=== PATIENT | male | born 1945 | race Caucasian/White ===

== ENCOUNTER 2017-01-04 19:05 | Emergency (ER) | payer MEDICARE, OTHER ==
[~2017-01-04] VITALS: Ht 177.8 cm; Wt 90.0 kg
[~2017-01-04 19:05] MED LIST: ACET500C5 PO; ATOR20TA38 PO; BACL20TA PO; BESI5DRO RIGHT EYE; BROM3DRO RIGHT EYE; CAPT50TA3 PO; DOCU250C68 PO; GABA-528 PO; LOTE5DRO3 RIGHT EYE; VERA80TA PO; [UNRECOGNIZED DRUG - CODE] PO
[2017-01-04 19:38] VITALS: Ht 177.8 cm; Wt 90.0 kg
--- NOTE | 2017-01-04 21:58 | ERD ---
ER Documentation Chief Complaint Date/Time DATE: 01/04/17 TIME: 21:54 Chief Complaint Bilateral leg cramping. pt had accident 12 year ago HPI Pleasant [place] Citizen-speaking 71-year-old male presents to emergency department today with increased neuropathy, tingling burning nerve pain from below bilateral knees down. Patient has a spinal injury 12 years ago, is wheelchair bound. Patient in room with his who reports that this pain has been increasing over the last few days. Patient is also concerned about his blood pressure, he brings his blood pressure cuff in 173/101 on left arm. This is taken on patient's home machine, reevaluation by nurse practitioner on hospital machine 173/83. Patient reports pain is severe, patient almost in tears. Patient denies nausea, vomiting, dysuria or hematuria. ROS All systems reviewed and are negative except as per history of present illness. Medications Home Meds Active Scripts Hydrocodone/Acetaminophen (Brenton 5-325 Tablet) 1 Each Tablet, 1 TAB PO Q6H Y for PAIN, #20 TAB Prov:ESTEVAN CORREIA 01/04/17 Acetaminophen* (Tylophen*) 500 Mg Capsule, 1 CAP PO Q6H Y for PAIN AND OR ELEVATED TEMP, #20 CAP Prov:JENNY LEMOS MD 08/28/16 Reported Medications Besifloxacin Hydrochloride (Besivance) 5 Ml Drops.susp, 1 DRP RIGHT EYE TID 10/24/14 Bromfenac Sodium (PROLENSA) 1.6 Ml Drops, 1 DRP RIGHT EYE DAILY 10/24/14 Loteprednol Etabonate* (Lotemax*) 5 Ml Drops.susp, 1 DROP RIGHT EYE TID, EA 10/24/14 Verapamil Hcl* (Calan*) 80 Mg Tablet, 80 MG PO TID, TAB 10/21/14 Gabapentin* (Gabapentin*) 800 Mg Tablet, 800 MG PO TID, TAB 10/21/14 Docusate Sodium* (Dok*) 250 Mg Capsule, 250 MG PO BID Y for CONSTIPATION, CAP 10/21/14 Captopril* (Captopril*) 50 Mg Tablet, 50 MG PO BID, TAB 10/21/14 Baclofen* (Baclofen*) 20 Mg Tablet, 20 MG PO TID, TAB 10/21/14 Atorvastatin Calcium* (Atorvastatin Calcium*) 20 Mg Tablet, 20 MG PO DAILY 07/31/13 Metformin Hcl* (Glumetza*) 1,000 Mg [id number], 1000 MG PO BID 07/31/13 Allergies Allergies: Coded Allergies: No Known Allergies (Verified Allergy, Mild, 10/23/14) PMhx/Soc History of Surgery: Yes (back surgery) Anesthesia Reaction: No Hx Neurological Disorder: No Hx Respiratory Disorders: No Hx Cardiac Disorders: Yes (htn, dm, cholesterol) Hx Psychiatric Problems: No Hx Miscellaneous Medical Probl: No Hx Alcohol Use: No Hx Substance Use: No Hx Tobacco Use: No Smoking Status: Never smoker Physical Exam Vitals Vital Signs Date Time Temp Pulse Resp B/P Pulse Ox O2 Delivery O2 Flow Rate FiO2 01/04/17 19:38 97.2 84 18 135/99 95 Blood pressure rechecked by nurse practitioner. 173/83. Physical Exam Const: No acute distress Head: Eyes: ENT: Neck: Resp: Cardio: Abd: Skin: No petechiae or rashes Back: No midline or flank tenderness Ext: Patient in wheelchair, bilateral extremities warm, no muscle wasting, patient has some movement with resistance. Peripheral pulses palpable. Joint spaces soft, normal circulation, decreased sensation. Neur: Awake and alert Psych: Normal Mood and Affect Results 24 hrs Current Medications Medications (Trade) Dose Ordered Sig/Deysi Route PRN Reason Start Time Stop Time Status Last Admin Dose Admin Acetaminophen/ Hydrocodone Bitart (Brenton (10/325)) 1 tab ONCE ONCE PO 01/04/17 22:00 01/04/17 22:01 DC 01/04/17 22:16 Procedures/MDM [place] Citizen-speaking 71-year-old male patient presents to emergency room with chronic leg pain worsening over the last few weeks. Patient's is in room who helps with history. 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 Patient in wheelchair reports neuropathy to lower extremities. Patient' s currently on Neurontin with worsening of numbness and tingling to the lower extremities. Patient is currently not being followed by pain management, responded well to Brenton 5/325mg. I feel patient's case can be managed outpatient and he is stable for discharge at this time. He has received a referral for pain management, and a prescription for Brenton 5/325 mg 20 count. Exam findings, treatment plan discussed with patient and prior to discharge , emergent return to emergency department for reevaluation discussed. Side effects of medication reviewed. Comfort care discussed. Patient instructed to call to schedule an appointment with pain management. Continue all routine medications as prescribed. Patient and verbalized understanding, agree with plan of care. Departure Condition: ESTEVAN Garnica Jan 04, 2017 21:58
[2017-01-04] MEDS ORDERED: HYDROCODONE/APAP (10/325) TAB PO ONE (22:00)
[2017-01-04] MEDS ORDERED: HYDR-906 PO (22:58)
== END 2017-01-04 23:20 | disposition home or self-care (01) ==
LOC: FTE 19:05
DX: M79.605 Pain in left leg (principal); M79.604 Pain in right leg; R20.0 Anesthesia of skin; R20.2 Paresthesia of skin; I10 Essential (primary) hypertension; E11.9 Type 2 diabetes mellitus without complications; Z79.84 Long term (current) use of oral hypoglycemic drugs
CPT/HCPCS: 99283

== ENCOUNTER 2018-04-24 11:54 | Observation (INO) | END 2018-04-25 15:10 | disposition home or self-care (01) ==

== ENCOUNTER 2018-08-20 04:59 | Emergency (ER) | END 2018-08-20 10:33 | disposition home or self-care (01) ==

== ENCOUNTER 2019-03-02 15:07 | Emergency (ER) | payer MEDICARE, OTHER ==
[~2019-03-02] VITALS: Ht 170.2 cm; Wt 70.0 kg
[~2019-03-02 15:07] MED LIST changes: -ACET500C5 PO; +AMLO5TAB4 PO; +ASPI-817 PO; -BESI5DRO RIGHT EYE; -BROM3DRO RIGHT EYE; -CAPT50TA3 PO; +CEPH-443 PO; -DOCU250C68 PO; +FAMO20TA18 PO; +IBUP-1542 PO; +INSU100I33 SC; +LANT3I SC; +LIDO1ADH41 TP; +LISI-471 PO; -LOTE5DRO3 RIGHT EYE; +POLY17PO6 PO; +TERB30CR22 TOP; -VERA80TA PO
[2019-03-02] MEDS ORDERED: morphine 4 MG/ML VIAL IV STA (15:16)
[2019-03-02] MEDS ORDERED: SOD CHLORIDE 0.9% 500 ML IV STA (15:16)
[2019-03-02] MEDS ORDERED: ONDANSETRON 4 MG INJ IV STA (15:16)
[2019-03-02 15:18] VITALS: Ht 170.2 cm; Wt 70.0 kg
[2019-03-02] MEDS ORDERED: LORAZEPAM 2 MG INJ IV ONE (15:30)
--- NOTE | 2019-03-02 15:41 | ERD ---
ER Documentation Chief Complaint Chief Complaint BIB RA FOR EVAL OF LEFT SIDED WEAKNESS SINCE THIS AM. HPI This is a 73-year-old gentleman who presents to the emergency room with headache and numbness and tingling. The patient is a very limited and difficult historian despite the use of an swatch maker. He states that around 11 AM he started to have gradual onset bandlike headache that is throbbing. This is similar to headaches in the past. The patient has been getting headaches more frequently recently over the last 1-2 months. The patient notes associated paresthesia of the left upper extremity. Despite what is noted at triage the patient denies any motor weakness. No slurred speech, no difficulty talking and no difficulty moving his upper extremities. The patient has baseline paraplegia related to spinal fracture. During the patient's encounter translation services were utilized Language: Danish Source: In person ROS All systems reviewed and are negative except as per history of present illness. Medications Home Meds Reported Medications Insulin Glargine* (Lantus*) 100 Unit/Ml Soln, 20 UNIT SC QHS, #1 VIAL 03/02/19 Insulin Aspart* (Novolog Insulin Pen*) 100 Unit/Ml Soln, 15 UNIT SC WITH MEALS, EA 03/02/19 Aspirin* (Aspirin* EC) 81 Mg Tablet.dr, 81 MG PO DAILY, TAB 03/02/19 Ibuprofen* (Ibuprofen*) 600 Mg Tablet, 600 MG PO Q8, TAB 03/02/19 Atorvastatin Calcium* (Atorvastatin Calcium*) 20 Mg Tablet, 20 MG PO QHS, #30 TAB 03/02/19 Lisinopril* (Lisinopril*) 30 Mg Tablet, 30 MG PO DAILY, #30 TAB 03/02/19 Metformin Hcl* (Metformin Hcl*) 1,000 Mg Tablet, 1000 MG PO WITH BREAKFAST DINNE, #60 TAB 03/02/19 Baclofen* (Baclofen*) 20 Mg Tablet, 20 MG PO Q8, TAB 03/02/19 Famotidine* (Famotidine*) 20 Mg Tablet, 20 MG PO BID, #60 TAB 03/02/19 Gabapentin* (Gabapentin*) 800 Mg Tablet, 800 MG PO TID, #90 TAB 03/02/19 Amlodipine Besylate* (Amlodipine Besylate*) 10 Mg Tablet, 10 MG PO DAILY, #30 TAB 03/02/19 Discontinued Reported Medications Lidocaine (Aspercreme) 1 Each Adh..patch, 1 EACH TP 08/20/18 Terbinafine Hcl* (Terbinafine Hcl*) 1% - 30 Gm Cream..g., 1 APPLIC TOP DAILY, TUB 08/20/18 Ibuprofen* (Ibuprofen*) 600 Mg Tablet, 600 MG PO Q6H PRN for PAIN LEVEL 1-5, TAB 08/20/18 Polyethylene Glycol* (Miralax*) 17 Gm Powd.pack, 17 GM PO DAILY, #30 PACKET 08/20/18 Famotidine* (Famotidine*) 20 Mg Tablet, 20 MG PO BID, #60 TAB 08/20/18 Insulin Glargine,Hum.rec.anlog (Basaglar Kwikpen U-100) 100 Unit/1 Ml Insuln.p en, 10-20 UNIT SC AC MEALS, EA 04/24/18 Insulin Glargine* (Lantus*) 100 Unit/Ml Soln, 18 UNIT SC QHS, #1 VIAL 04/24/18 Aspirin* (Aspirin* EC) 81 Mg Tablet.dr, 81 MG PO DAILY, TAB 04/24/18 Amlodipine Besylate* (Norvasc*) 5 Mg Tablet, 5 MG PO DAILY, TAB 04/24/18 Lisinopril* (Lisinopril*) 20 Mg Tablet, 20 MG PO DAILY, #30 TAB 04/24/18 Gabapentin* (Gabapentin*) 800 Mg Tablet, 800 MG PO TID, TAB 10/21/14 Baclofen* (Baclofen*) 20 Mg Tablet, 20 MG PO TID, TAB 10/21/14 Atorvastatin Calcium* (Atorvastatin Calcium*) 20 Mg Tablet, 20 MG PO DAILY 07/31/13 Metformin Hcl* (Glumetza*) 1,000 Mg [id number], 1000 MG PO BID 07/31/13 Discontinued Scripts Cephalexin* (Keflex*) 500 Mg Capsule, 500 MG PO BID for 7 Days, CAP Prov:AMIE KHAN MD 08/20/18 Allergies Allergies: Coded Allergies: No Known Allergies (Verified Allergy, Mild, 03/02/19) PMhx/Soc History of Surgery: No Anesthesia Reaction: No Hx Neurological Disorder: No Hx Respiratory Disorders: No Hx Cardiac Disorders: Yes (htn) Hx Psychiatric Problems: No Hx Miscellaneous Medical Probl: Yes (See EMR for details. STROKE) Hx Alcohol Use: No Hx Substance Use: No Hx Tobacco Use: No FmHx Family History: No diabetes Physical Exam Vitals Vital Signs Date Temp Pulse Resp B/P (MAP) Pulse Ox O2 O2 Flow FiO2 Time Delivery Rate 03/02/19 97.6 80 16 150/90 99 15:18 (110) Physical Exam General: Very anxious, moving upper extremities Head: Normocephalic, atraumatic. Eyes: Pupils equally reactive, EOM intact ENT: Moist mucous membranes Neck: Supple, no lymphadenopathy Respiratory: Lungs clear bilaterally, no distress Cardiovascular: RRR, no murmurs, rubs, or gallops Abdominal: Soft, non-tender, non-distended, no peritoneal signs : Deferred MSK: Patient has 5 out of 5 strength of bilateral upper extremities with no deficits in sensation. The patient has baseline paralysis of bilateral lower extremities Neurologic: Patient is alert and oriented, moving upper extremities at baseline. Normal rapid alternating movements, no pronator drift, normal finger to nose. Skin: No rash Psych: Normal mood Result Diagram: 03/02/19 1526 03/02/19 1526 Results 24 hrs Laboratory Tests Test 03/02/19 15:26 White Blood Count 10.6 10^3/ul Red Blood Count 5.48 10^6/ul Hemoglobin 14.7 g/dl Hematocrit 44.5 % Mean Corpuscular Volume 81.2 fl Mean Corpuscular Hemoglobin 26.8 pg Mean Corpuscular Hemoglobin Concent 33.0 g/dl Red Cell Distribution Width 14.6 % Platelet Count 358 10^3/UL Mean Platelet Volume 9.3 fl Immature Granulocytes % 0.200 % Neutrophils % 58.7 % Lymphocytes % 26.0 % Monocytes % 9.5 % Eosinophils % 4.7 % Basophils % 0.9 % Nucleated Red Blood Cells % 0.0 /100WBC Immature Granulocytes # 0.020 10^3/ul Neutrophils # 6.2 10^3/ul Lymphocytes # 2.8 10^3/ul Monocytes # 1.0 10^3/ul Eosinophils # 0.5 10^3/ul Basophils # 0.1 10^3/ul Nucleated Red Blood Cells # 0.0 10^3/ul Prothrombin Time 12.1 Sec Prothrombin Time Ratio 0.9 INR International Normalized Ratio 0.89 Activated Partial Thromboplast Time 27.7 Sec Sodium Level 139 mmol/L Potassium Level 5.1 mmol/L Chloride Level 101 mmol/L Carbon Dioxide Level 29 mmol/L Anion Gap 9 Blood Urea Nitrogen 21 mg/dl Creatinine 0.94 mg/dl Est Glomerular Filtrat Rate mL/min mL/min Glucose Level 97 mg/dl Calcium Level 10.1 mg/dl Troponin I < 0.012 ng/ml Current Medications Medications Dose Sig/Deysi Start Time Status Last (Trade) Ordered Route PRN Stop Time Admin Dose Reason Admin Sodium 500 ml @ Q1H STAT 03/02/19 DC 03/02/19 Chloride 500 mls/hr IV 15:16 15:51 03/02/19 16:15 Ondansetron 4 mg ONCE STAT 03/02/19 DC 03/02/19 HCl (Zofran IV 15:16 15:51 Inj) 03/02/19 15:17 Morphine 4 mg ONCE STAT 03/02/19 DC 03/02/19 Sulfate IV 15:16 15:51 (morphine) 03/02/19 15:17 Lorazepam 0.5 mg ONCE ONCE 03/02/19 DC 03/02/19 (Ativan) IV 15:30 15:51 03/02/19 15:31 Procedures/MDM EKG, MONITORS, & DIAGNOSTIC IMAGING: EKG: EKG: I reviewed and interpreted a 12-lead EKG. Rhythm: Normal sinus rhythm ST Changes: No contiguous ST segment elevations T waves: No contiguous T wave inversions Impression: No evidence of acute cardiac ischemia CT brain: IMPRESSION: Mild to moderate age appropriate atrophy. Mild white matter disease compatible with chronic small vessel ischemia. No intracranial hemorrhage, mass or evidence of acute transcortical infarct. LAB INTERPRETATION: I reviewed the laboratory testing and it shows no evidence of acute process MEDICAL DECISION MAKING: Patient is extremely anxious which could be contributing to his symptoms. The patient is describing a headache with paresthesia. He does not describe a sudden onset of headache and he has a history of chronic headaches. The patient's headache is unlikely related to serious etiology. The patient does not exhibit any clinical signs or symptoms, and has no risk factors to suggest headache etiology such as subarachnoid hemorrhage, acute vertebral or carotid dissection, intracranial mass, epidural, subdural hematoma, dural venous sinus thrombosis, giant cell arteritis, or pseudotumor cerebri. The patient has baseline paralysis of his lower extremities. His upper extremity exam is nonspecific. The patient has no facial droop, no pronator drift. I do not believe this is consistent with acute stroke syndrome. The patient has a difficult NIHSS because of his baseline paralysis but otherwise wasserman s a nonfocal neurologic exam without acute neurologic change. For this reason the patient is not a TPA candidate or interventional candidate. CT of the brain would be appropriate to rule out hemorrhage. Anxiolysis to be provided. ER COURSE: * The patient's symptoms are dramatically improved. The patient is resting comfortably. The patient has never had any focal neurologic symptoms. He had a mild headache. I do not believe this is consistent with TIA or stroke. I feel the patient can be safely discharged with close primary care follow-up. Return precautions including signs of stroke were discussed with the patient and family. CONSULTATION: None DISPOSITION PLAN: The patient does not have an identifiable emergent medical condition that warrants inpatient hospitalization at this time. The patient is deemed safe for discharge with outpatient follow-up. We discussed follow up with the patient's primary care doctor within 24 to 48 hours as needed. We also discussed return to the emergency room for worsening symptoms or worsening condition. Outpatient referral: None required Discharge Medications: None required Departure Diagnosis: Primary Impression: Headache Headache type: unspecified Headache chronicity pattern: acute headache Intractability: not intractable Qualified Codes: R51 - Headache Additional Impression: Paresthesia Condition: Stable AMIE KHAN MD Mar 02, 2019 15:41
[2019-03-02] MEDS ORDERED: AMLO-147 PO (17:47)
[2019-03-02] MEDS ORDERED: GABA-528 PO (17:47)
[2019-03-02] MEDS ORDERED: FAMO20TA18 PO (17:48)
[2019-03-02] MEDS ORDERED: BACL20TA PO (17:49)
[2019-03-02] MEDS ORDERED: LISI30TA47 PO (17:49)
[2019-03-02] MEDS ORDERED: METF100010 PO (17:49)
[2019-03-02] MEDS ORDERED: ATOR20TA38 PO (17:50)
[2019-03-02] MEDS ORDERED: IBUP-1542 PO (17:50)
[2019-03-02] MEDS ORDERED: ASPI-817 PO (17:51)
[2019-03-02] MEDS ORDERED: NOVO3I SC (17:52)
[2019-03-02] MEDS ORDERED: LANT3I SC (17:53)
[2019-03-02 19:15] VITALS: BP 130/66; PULSE 77; RESP 16
== END 2019-03-02 19:15 | disposition home or self-care (01) ==
LOC: E/R 15:07
DX: R51 Headache (principal); I10 Essential (primary) hypertension; R20.2 Paresthesia of skin; Z79.4 Long term (current) use of insulin; Z79.82 Long term (current) use of aspirin
CPT/HCPCS: 36415; 70450; 71045; 80048; 84484; 85025; 85610; 85730; 93005; 96374; 96375; 99285; J2060; J2270; J2405; J7040

== ENCOUNTER 2019-06-29 00:55 | Emergency (ER) | payer MEDICARE, OTHER ==
[~2019-06-29] VITALS: Ht 167.6 cm; Wt 89.0 kg
[~2019-06-29 00:55] MED LIST changes: +AMLO-147 PO; -AMLO5TAB4 PO; -CEPH-443 PO; -INSU100I33 SC; -LIDO1ADH41 TP; -LISI-471 PO; +LISI30TA47 PO; +METF100010 PO; +NOVO3I SC; -POLY17PO6 PO; -TERB30CR22 TOP; -[UNRECOGNIZED DRUG - CODE] PO
[2019-06-29 01:01] VITALS: Ht 167.6 cm; Wt 89.0 kg
[2019-06-29] MEDS ORDERED: LORAZEPAM 1 MG TAB PO ONE (01:30)
--- NOTE | 2019-06-29 02:08 | ERD ---
ER Documentation Chief Complaint Chief Complaint [id number],from home,urinary retention,SOB,anxiety,paraplegic HPI Patient is a 73-year-old male with diabetes and paraplegia who presents with anxiety. Please note that a seismic interpreter was used for the entire history and physical exam. The patient was brought in by ambulance. His was having difficulty with straight cathing the patient and he got nervous. The patient started with shortness of breath about 40 minutes ago. He started with anxiety at the same time. The checked the sugar which was normal but the blood pressure was low which made the patient more anxious. The patient has leg shaking which happens frequently. The thinks is that this is most likely related to anxiety. Upon review of old medical record the patient has multiple visits to the ER since 2010. ROS All systems reviewed and are negative except as per history of present illness. Medications Home Meds Reported Medications Insulin Glargine* (Lantus*) 100 Unit/Ml Soln, 20 UNIT SC QHS, #1 VIAL 03/02/19 Insulin Aspart* (Novolog Insulin Pen*) 100 Unit/Ml Soln, 15 UNIT SC WITH MEALS, EA 03/02/19 Aspirin* (Aspirin* EC) 81 Mg Tablet.dr, 81 MG PO DAILY, TAB 03/02/19 Ibuprofen* (Ibuprofen*) 600 Mg Tablet, 600 MG PO Q8, TAB 03/02/19 Atorvastatin Calcium* (Atorvastatin Calcium*) 20 Mg Tablet, 20 MG PO QHS, #30 TAB 03/02/19 Lisinopril* (Lisinopril*) 30 Mg Tablet, 30 MG PO DAILY, #30 TAB 03/02/19 Metformin Hcl* (Metformin Hcl*) 1,000 Mg Tablet, 1000 MG PO WITH BREAKFAST DINNE, #60 TAB 03/02/19 Baclofen* (Baclofen*) 20 Mg Tablet, 20 MG PO Q8, TAB 03/02/19 Famotidine* (Famotidine*) 20 Mg Tablet, 20 MG PO BID, #60 TAB 03/02/19 Gabapentin* (Gabapentin*) 800 Mg Tablet, 800 MG PO TID, #90 TAB 03/02/19 Amlodipine Besylate* (Amlodipine Besylate*) 10 Mg Tablet, 10 MG PO DAILY, #30 TAB 03/02/19 Allergies Allergies: Coded Allergies: No Known Allergies (Verified Allergy, Mild, 03/02/19) PMhx/Soc History of Surgery: Yes (colectomy) Anesthesia Reaction: No Hx Neurological Disorder: Yes (stroke) Hx Respiratory Disorders: No Hx Cardiac Disorders: Yes (HTN,cholesterol) Hx Psychiatric Problems: No Hx Miscellaneous Medical Probl: No Hx Alcohol Use: No Hx Substance Use: No Hx Tobacco Use: No Smoking Status: Unknown if ever smoked FmHx Family History: diabetes Physical Exam Vitals Vital Signs Date Temp Pulse Resp B/P (MAP) Pulse Ox O2 O2 Flow FiO2 Time Delivery Rate 06/29/19 60 13 124/82 98 Room Air 02:00 (96) 06/29/19 64 19 124/77 96 Room Air 01:30 (93) 06/29/19 98.6 70 18 122/63 94 01:01 (82) Physical Exam Const: No acute distress Head: Atraumatic Eyes: Normal Conjunctiva ENT: Normal External Ears, Nose and Mouth. Neck: Full range of motion. No meningismus. Resp: Clear to auscultation bilaterally Cardio: Regular rate and rhythm, no murmurs Abd: Soft, non tender, non distended. Normal bowel sounds Skin: No petechiae or rashes Back: No midline or flank tenderness Ext: No cyanosis, or edema Neur: Awake paraplegia at baseline Psych: Anxious Results 24 hrs Laboratory Tests Test 06/29/19 01:44 Bedside Urine pH (LAB) 5.0 Bedside Urine Protein (LAB) 1+ Bedside Urine Glucose (UA) Negative Bedside Urine Ketones (LAB) Negative Bedside Urine Blood Negative Bedside Urine Nitrite (LAB) Negative Bedside Urine Leukocyte Esterase (L Trace Current Medications Medications Dose Sig/Deysi Start Time Status Last (Trade) Ordered Route PRN Stop Time Admin Dose Reason Admin Lorazepam 1 mg ONCE ONCE 06/29/19 DC 06/29/19 (Ativan) PO 01:30 02:00 06/29/19 01:31 Procedures/MDM Urine dip negative for infection. Chest X-ray 1V Interpreted by me: Soft Tissue: No acute abnormalities Bones: No acute abnormalities Mediastinum/Cardiac Silhouette/Lungs: Fullness in the right hilar region which is seen on previous chest x-ray, no new pneumonia or pneumothorax EKG read by me: Rate/Rhythm: Regular rate and rhythm at a rate of 64 Intervals: Normal Impression: No evidence of ischemia or arrhythmia Patient is a 73-year-old male who presents with shortness of breath and anxiety. EKG was normal. Chest x-ray shows no obvious pneumonia or pneumothorax. Urine dip was negative for infection. The patient's vital signs are normal and his blood pressure is stable. He has no fever. At this point I believe outpatient management is appropriate. I doubt acute coronary syndrome, pneumonia, pneumothorax, pulmonary embolism, or aortic dissection. Patient will be discharged but will need to follow-up closely with his primary doctor within 24 to 48 hours. He can return sooner for any worsening symptoms. Departure Diagnosis: Primary Impression: Panic attack Additional Impressions: SOB (shortness of breath) Retention of urine Condition: Fair Patient Instructions: Dyspnea, Panic Attack Referrals: Your primary doctor Additional Instructions: Llame al doctor MAANA y abby cedric GIOVANNI PARA DENTRO DE 1-2 GAMBINO.Dgale a la secretaria que nosotros le instruimos hacer esta giovanni.Avise o llame si domínguez condicin se empeora antes de la giovanni. Regresa aqui si peor o no mejor. MACO SNIDER MD Jun 29, 2019 02:08
[2019-06-29 02:55] VITALS: BP 121/67; PULSE 99; RESP 18
== END 2019-06-29 02:55 | disposition home or self-care (01) ==
LOC: E/R 00:55
DX: R33.9 Retention of urine, unspecified (principal); I10 Essential (primary) hypertension; F41.0 Panic disorder [episodic paroxysmal anxiety]; R06.02 Shortness of breath; Z86.73 Personal history of transient ischemic attack (TIA), and cerebral infarction without residual deficits
CPT/HCPCS: 71045; 81003; 93005; A4310